=== PATIENT | female | born 2000 | race Caucasian/White ===

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

== ENCOUNTER 2022-02-15 17:51 | Emergency (ER) | payer OTHER ==
--- NOTE | 2022-02-15 17:56 | ERPHSYRPT ---
- History of Present Illness Time Seen by Provider: 02/15/22 17:55 Source: patient Exam Limitations: no limitations Physician History: This is an 21-year-old white female who presents to the emergency department because of suicidal ideation. She states that she does not have homicidal ideation. She has no hallucinations. She has no specific plan but she stated that she wanted to do something quick. She has a history of cutting in the past. She is never been to the emergency department because of her suicidal ideation. She states that she is depressed and the underlying cause of her suicidal ideation is multifactorial including her gender identity, financial issues, depression and others. She does not have a headache. She has no shortness of breath. She does not have chest pain. Timing/Duration: other (Present for several months) Severity of Symptoms-Max: moderate Severity of Symptoms-Current: moderate Context related to: work, living circumstances Suicidal thoughts: other (No specific plan) Associated Symptoms: confused, depressed, frustrated, suicidal ideation, No hostile, No hallucinating, No impaired concentration, No paranoid Previous symptoms: same symptoms as today, no recent treatment Allergies/Adverse Reactions: No Known Drug Allergies Allergy (Verified 02/15/22 18:16) Home Medications: Sertraline HCl 50 mg [Zoloft 50 mg Tablet] 100 mg PO DAILY 12/01/21 [History] Hx Tetanus, Diphtheria Vaccination/Date Given: Yes Hx Influenza Vaccination/Date Given: No Hx Pneumococcal Vaccination/Date Given: No Travel Risk - International Travel Have you traveled outside of the country in past 3 weeks: No - Coronavirus Screening Are you exhibiting any of the following symptoms?: No Close contact with a COVID-19 positive Pt in past 14-21 Days: No - Vaccine Status Have you recieved a Covid-19 vaccination: No 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: [employer] - Vaccination Dates Date of 2cond Vaccination (if applicable): 2020 - Past Medical History Pertinent Past Medical History: No - Past Surgical History Past Surgical History: No - Social History Smoking Status: Never smoker Exposure to second hand smoke: Yes Drug Use: none Patient Lives Alone: No - Review of Systems Constitutional: No Symptoms Eyes: No Symptoms Ears, Nose, & Throat: No Symptoms Respiratory: No Symptoms Cardiac: No Symptoms Abdominal/Gastrointestinal: No Symptoms Genitourinary Symptoms: No Symptoms Musculoskeletal: No Symptoms Skin: No Symptoms Neurological: No Symptoms Psychological: Depression, Suicidal Ideations, No Homicidal Ideations, No Hallucinations Endocrine: No Symptoms Hematologic/Lymphatic: No Symptoms Immunological/Allergic: No Symptoms All Other Systems: Reviewed and Negative - Nursing Vital Signs Nursing Vital Signs: Initial Vital Signs Temperature 97.7 F 02/15/22 18:19 Pain Scale Pain Intensity 0 - Physical Exam General Appearance: no apparent distress, alert, anxiety Eyes, Ears, Nose, Throat Exam: normal ENT inspection, moist mucous membranes Neck Exam: normal inspection, non-tender, supple, full range of motion Respiratory Exam: normal breath sounds, lungs clear, airway intact, No chest tenderness, No respiratory distress Cardiovascular Exam: regular rate/rhythm, normal heart sounds, normal peripheral pulses Gastrointestinal/Abdominal Exam: soft, normal bowel sounds, No tenderness Extremities Exam: normal inspection, normal range of motion, No evidence of injury Current Suicidality: denies suicide plan Neurological Exam: alert, normal mood/affect, calm, 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, oriented x 3, anxious, depressed affect Appearance: appropriate appearance, appropriate insight Behavior/Eye Contact/Speech: alert & cooperative, good eye contact, normal speech Thoughts/Hallucinations: normal thought pattern, no apparent hallucination Skin Exam: normal color, warm, dry SpO2 Interpretation: normal O2 Delivery: Room Air - Course Nursing assessment & vital signs reviewed: Yes Ordered Tests: Active Orders 24 hr Category Date Time Status EKG-ER Only STAT Care 02/15/22 18:01 Active ACETAMINOPHEN Stat Lab 02/15/22 18:54 Completed CBC W DIFF Stat Lab 02/15/22 18:54 Completed CMP Stat Lab 02/15/22 18:54 Completed HCG,QUALITATIVE URINE Stat Lab 02/15/22 19:22 Completed SALICYLATE Stat Lab 02/15/22 18:54 Completed UA W/RFX CULTURE Stat Lab 02/15/22 18:19 Completed Urine Triage Profile Stat Lab 02/15/22 18:19 Completed Lab/Rad Data: Laboratory Result Diagrams 02/15/22 18:54 02/15/22 18:54 Laboratory Results 02/15/22 02/15/22 02/15/22 Range/Units 19:46 19:22 18:54 WBC (4.0-10.5) K/mm3 RBC (4.1-5.4) M/mm3 Hgb (12.0-16.0) gm/dl Hct (35-47) % MCV (78-100) fl MCH (26-32) pg MCHC (32-36) g/dl RDW (11.5-14.0) % Plt Count (150-450) K/mm3 MPV (7.5-11.0) fl Gran % (36.0-66.0) % Eos # (Auto) (0-0.5) Absolute Lymphs (auto) (1.0-4.6) Absolute Monos (auto) (0.0-1.3) Lymphocytes % (24.0-44.0) % Monocytes % (0.0-12.0) % Eosinophils % (0.00-5.0) % Basophils % (0.0-0.4) % Absolute Granulocytes (1.4-6.9) Basophils # (0-0.4) Sodium 139 (137-145) mmol/L Potassium 3.9 (3.5-5.1) mmol/L Chloride 104 (98-107) mmol/L Carbon Dioxide 22 (22-30) mmol/L Anion Gap 17.1 H (5-15) MEQ/L BUN 16 (7-17) mg/dL Creatinine 0.81 (0.52-1.04) mg/dL Estimated GFR > 60.0 ML/MIN Glucose 95 (74-106) mg/dL Calcium 9.7 (8.4-10.2) mg/dL Total Bilirubin 0.30 (0.2-1.3) mg/dL AST 22 (14-36) U/L ALT 20 (0-35) U/L Alkaline Phosphatase 70 (38-126) U/L Serum Total Protein 7.6 (6.3-8.2) g/dL Albumin 4.6 (3.5-5.0) g/dL Urinalys Dipstick Clnc Urine Color (YELLOW) Urine Appearance (CLEAR) Urine pH (5-6) Ur Specific [place] (1.005-1.025) POC Urine Protein Conf (Negative) Urine Ketones (NEGATIVE) Urine Nitrite (NEGATIVE) Urine Bilirubin (NEGATIVE) Urine Urobilinogen (0-1) mg/dL Urine Leukocytes (NEGATIVE) Urine WBC (Auto) (0-5) /HPF Urine RBC (Auto) (0-2) /HPF U Epithel Cells (Auto) (FEW) /HPF Urine Bacteria (Auto) (NEGATIVE) /HPF Urine RBC (0-5) Master/ul Ur Culture Indicated? Urine Glucose (NEGATIVE) mg/dL Urine HCG, Qual NEGATIVE (Negative) Salicylates < 1.0 L (2-20) mg/dL Urine Opiates Level (NEGATIVE) Ur Methadone (NEGATIVE) Acetaminophen < 10 L (10-30) ug/ml Urine Barbiturates (NEGATIVE) Ur Phencyclidine (PCP) (NEGATIVE) Urine Amphetamine (NEGATIVE) U Benzodiazepine Level (NEGATIVE) Urine Cocaine (NEGATIVE) Urine Marijuana (THC) (NEGATIVE) Influenza Type A Ag NEGATIVE (NEGATIVE) Influenza Type B Ag NEGATIVE (NEGATIVE) RSV (PCR) NEGATIVE (Negative) SARS-CoV-2 (PCR) NEGATIVE (NEGATIVE) Slides for Path Review 02/15/22 02/15/22 02/15/22 Range/Units 18:54 18:19 18:19 WBC 9.0 (4.0-10.5) K/mm3 RBC 5.42 H (4.1-5.4) M/mm3 Hgb 11.9 L (12.0-16.0) gm/dl Hct 39.1 (35-47) % MCV 72.1 L (78-100) fl MCH 22.0 L (26-32) pg MCHC 30.4 L (32-36) g/dl RDW 16.1 H (11.5-14.0) % Plt Count 413 (150-450) K/mm3 MPV 9.4 (7.5-11.0) fl Gran % 66.5 H (36.0-66.0) % Eos # (Auto) 0.16 (0-0.5) Absolute Lymphs (auto) 2.31 (1.0-4.6) Absolute Monos (auto) 0.51 (0.0-1.3) Lymphocytes % 25.6 (24.0-44.0) % Monocytes % 5.7 (0.0-12.0) % Eosinophils % 1.8 (0.00-5.0) % Basophils % 0.4 (0.0-0.4) % Absolute Granulocytes 6.00 (1.4-6.9) Basophils # 0.04 (0-0.4) Sodium (137-145) mmol/L Potassium (3.5-5.1) mmol/L Chloride (98-107) mmol/L Carbon Dioxide (22-30) mmol/L Anion Gap (5-15) MEQ/L BUN (7-17) mg/dL Creatinine (0.52-1.04) mg/dL Estimated GFR ML/MIN Glucose (74-106) mg/dL Calcium (8.4-10.2) mg/dL Total Bilirubin (0.2-1.3) mg/dL AST (14-36) U/L ALT (0-35) U/L Alkaline Phosphatase (38-126) U/L Serum Total Protein (6.3-8.2) g/dL Albumin (3.5-5.0) g/dL Urinalys Dipstick Clnc MAIN LAB Urine Color YELLOW (YELLOW) Urine Appearance CLEAR (CLEAR) Urine pH 7.0 (5-6) Ur Specific [place] 1.020 (1.005-1.025) POC Urine Protein Conf NEGATIVE (Negative) Urine Ketones NEGATIVE (NEGATIVE) Urine Nitrite NEGATIVE (NEGATIVE) Urine Bilirubin NEGATIVE (NEGATIVE) Urine Urobilinogen 0.2 (0-1) mg/dL Urine Leukocytes NEGATIVE (NEGATIVE) Urine WBC (Auto) NONE (0-5) /HPF Urine RBC (Auto) NONE (0-2) /HPF U Epithel Cells (Auto) RARE (FEW) /HPF Urine Bacteria (Auto) RARE (NEGATIVE) /HPF Urine RBC NEGATIVE (0-5) Master/ul Ur Culture Indicated? NO Urine Glucose NEGATIVE (NEGATIVE) mg/dL Urine HCG, Qual (Negative) Salicylates (2-20) mg/dL Urine Opiates Level NEGATIVE (NEGATIVE) Ur Methadone NEGATIVE (NEGATIVE) Acetaminophen (10-30) ug/ml Urine Barbiturates NEGATIVE (NEGATIVE) Ur Phencyclidine (PCP) NEGATIVE (NEGATIVE) Urine Amphetamine NEGATIVE (NEGATIVE) U Benzodiazepine Level NEGATIVE (NEGATIVE) Urine Cocaine NEGATIVE (NEGATIVE) Urine Marijuana (THC) NEGATIVE (NEGATIVE) Influenza Type A Ag (NEGATIVE) Influenza Type B Ag (NEGATIVE) RSV (PCR) (Negative) SARS-CoV-2 (PCR) (NEGATIVE) Slides for Path Review YES - Progress Progress: unchanged Progress Note: 02/15/22 21:37 Medical decision making: This patient has been accepted at [facility]. It is a mental health inpatient facility. The patient/case was staffed with their on-call physician today. Counseled pt/family regarding: lab results, diagnosis, need for follow-up - Departure Departure Disposition: Transfer Clinical Impression: Suicidal ideation Condition: Stable Critical Care Time: No Referrals: NATHALIA BLACK [Primary Care Provider] - Follow up/PCP as directed
[2022-02-15 18:58] LABS: Basophil (Absolute #) 0.04 (0-0.4); Eosinophil % 1.8 % (0.00-5.0); Eosinophil (Absolute #) 0.16 (0-0.5); Hematocrit 39.1 % (35-47); Hemoglobin 11.9 gm/dl (12.0-16.0); Lymphocyte (Absolute #) 2.31 (1.0-4.6); Lymphocytes % 25.6 % (24.0-44.0); Mean Cell Volume 72.1 fl (78-100); Mean Corpuscular Hgb Concent. 30.4 g/dl (32-36); Mean Platelet Volume 9.4 fl (7.5-11.0); Monocyte (Absolute #) 0.51 (0.0-1.3); Monocytes % 5.7 % (0.0-12.0); Neutrophil % 66.5 % (36.0-66.0); Platelet Count 413 K/mm3 (150-450); Red Blood Count 5.42 M/mm3 (4.1-5.4); Red Cell Distribution Width 16.1 % (11.5-14.0)
[2022-02-15 19:22] LABS: ACETAMINOPHEN < 10 ug/ml (10-30); ALBUMIN 4.6 g/dL (3.5-5.0); ALKALINE PHOSPHATASE 70 U/L (38-126); ANION GAP 17.1 MEQ/L (5-15); BLOOD UREA NITROGEN 16 mg/dL (7-17); CHLORIDE 104 mmol/L (98-107); Calcium 9.7 mg/dL (8.4-10.2); Carbon Dioxide 22 mmol/L (22-30); Creatinine 1 0.81 mg/dL (0.52-1.04); EST GLOMERULAR FILTRATION RATE > 60.0 ML/MIN; Glucose 95 mg/dL (74-106); Potassium 3.9 mmol/L (3.5-5.1); SALICYLATE < 1.0 mg/dL (2-20); SGOT/AST 22 U/L (14-36); SGPT/ALT 20 U/L (0-35); SODIUM 139 mmol/L (137-145); Total Protein 7.6 g/dL (6.3-8.2)
[2022-02-15 19:24] LABS: Appearance CLEAR (CLEAR); Bacteria RARE /HPF (NEGATIVE); Epithelial Cells RARE /HPF (FEW)
[2022-02-15 19:25] LABS: Bilirubin NEGATIVE (NEGATIVE); Dipstick done @ ? MAIN LAB; Glucose NEGATIVE (NEGATIVE); Ketones NEGATIVE (NEGATIVE); Nitrite NEGATIVE (NEGATIVE); Protein,Urine Dip NEGATIVE (Negative); RBC NEGATIVE Ery/ul (0-5); Urine Cultured Indicated? NO; Urobilinogen 0.2 mg/dL (0-1)
[2022-02-15 19:34] LABS: Amphetamine,Urine NEGATIVE (NEGATIVE); Barbiturate,Urine NEGATIVE (NEGATIVE); Benzodiazepine,Urine NEGATIVE (NEGATIVE); Cocaine,Urine NEGATIVE (NEGATIVE); Methadone,Urine NEGATIVE (NEGATIVE); Opiate,Urine NEGATIVE (NEGATIVE); PCP,Urine NEGATIVE (NEGATIVE); THC,Urine NEGATIVE (NEGATIVE)
[2022-02-15 20:13] LABS: Slide Review 1 YES
[2022-02-15 20:31] LABS: INFLUENZA A NEGATIVE (NEGATIVE); INFLUENZA B NEGATIVE (NEGATIVE); RESPIRATORY SYNCTIAL VIRUS NEGATIVE (Negative); SARS-CoV-2 Xpert Express NEGATIVE (NEGATIVE)
[2022-02-15 20:36] VITALS: O2SAT 98
[2022-02-15 22:03] VITALS: BP 125/77; PULSE 74
== END 2022-02-15 22:15 ==
LOC: ED 17:51
DX: R45.851 Suicidal ideations (principal); Z56.9 Unspecified problems related to employment; Z59.9 Problem related to housing and economic circumstances, unspecified; Z91.52 Personal history of nonsuicidal self-harm
CPT/HCPCS: 0241U; 36415; 80053; 80307; 81015; 84703; 85025; 93005; 99285

== ENCOUNTER 2023-08-24 04:34 | Emergency (ER) | payer SELFPAY ==
[2023-08-24 04:56] VITALS: TEMP 98.1
[2023-08-24 05:12] LABS: Absolute Neutrophil Ct (ANC) 10.62 x10^3/uL (1.4-6.9); BASOPHIL % 0.4 % (0.0-0.4); Basophil (Absolute #) 0.05 x10^3/uL (0-0.4); Eosinophil % 1.9 % (0.00-5.0); Eosinophil (Absolute #) 0.27 x10^3/uL (0-0.5); Hematocrit 40.2 % (35-47); Hemoglobin 12.7 g/dL (12.0-16.0); IMMATURE GRAN # 0.07 x10^3u/L (0.00-0.03); IMMATURE GRAN % 0.5 % (0.00-0.4); Lymphocyte (Absolute #) 2.33 x10^3/uL (1.0-4.6); Lymphocytes % 16.6 % (24.0-44.0); Mean Cell Volume 78.2 fL (78-100); Mean Corpuscular Hemoglobin 24.7 pg (26-32); Mean Corpuscular Hgb Concent. 31.6 g/dL (32-36); Mean Platelet Volume 9.5 fL (7.5-11.0); Neutrophil % 75.6 % (36.0-66.0); Platelet Count 379 x10^3/uL (150-450); Red Blood Count 5.14 x10^6/uL (4.1-5.4)
[2023-08-24] MEDS ORDERED: Sodium Chloride 0.9% 1000 ML 1,000 ML ONE (05:18)
[2023-08-24] MEDS ORDERED: Hydromorphone 1 mg/ml Injection ONE (05:18)
[2023-08-24] MEDS ORDERED: Zofran 4 MG/2 ML VIAL ONE (05:18)
[2023-08-24] MEDS: Hydromorphone 1 mg/ml Injection IV ONE (05:21)
[2023-08-24] MEDS: Zofran 4 MG/2 ML VIAL IV ONE (05:22)
[2023-08-24] MEDS: Sodium Chloride 0.9% 1000 ML 1,000 ML IV STA (05:22)
[2023-08-24 05:24] LABS: ALBUMIN 4.3 g/dL (3.5-5.0); ANION GAP 14.4 MEQ/L (5-15); BILIRUBIN,TOTAL 0.3 mg/dL (0.2-1.3); Calcium 9.1 mg/dL (8.4-10.2); Creatinine 1 0.69 mg/dL (0.52-1.04); EST GLOMERULAR FILTRATION RATE 126.6 ML/MIN; Potassium 3.3 mmol/L (3.5-5.1); Total Protein 7.6 g/dL (6.3-8.2)
[2023-08-24 05:29] LABS: HCG SERUM TEST NEGATIVE (NEGATIVE)
[2023-08-24 06:02] VITALS: O2SAT 97
--- NOTE | 2023-08-24 06:24 | XRAY ---
CLINICAL HISTORY:Lower ABD pain COMPARISON:None. TECHNIQUE:CT scan of the abdomen and pelvis was performed without IV contrast. Coronal and sagittal reconstructive images were also obtained. FINDINGS: Abdomen: The liver is of normal size. No focal or diffuse parenchymal abnormality. The intrahepatic biliary radicals and the bile ducts are normal. The spleen, pancreas, and adrenal glands are unremarkable. The kidneys are unremarkable. They are normal in size and shape. No calculi or hydronephrosis. The gallbladder is normal. No pericholecystic collection or radio-dense calculi in the gall bladder. The ascending colon, the transverse colon, the descending colon, visualized small bowel loops are unremarkable. No definite evidence of acute appendicitis. There is no evidence of significant enlargement of the mesenteric or retroperitoneal lymph nodes. Pelvis: The urinary bladder is unremarkable. The rectosigmoid colon is unremarkable. IUD is noticed. No adnexal masses were seen. No evidence of pelvic lymphadenopathy. Thoracic spine degenerative changes. No lytic or sclerotic bone lesions. IMPRESSION: 1. No acute abnormality was seen. 2. Unremarkable study. Electronically Signed by: Emma Hoyos MD. (08/24/2023 05:23:56 FUND DEVELOPMENT MANAGER)
--- NOTE | 2023-08-24 06:45 | ERPHSYRPT ---
- History of Present Illness Time Seen by Provider: 08/24/23 04:50 Historian: patient Exam Limitations: no limitations Patient Subjective Stated Complaint: pt states she woke up with lower abd pain 8/10. describes as cramping and shooting pains Triage Nursing Assessment: pt alert and oriented, answers questions approp. pt ambulates into room with steady gait noted. respirations nonlabored. skin warm and dry. abd soft, pt reports mild tenderness in lower abd. bowel sounds present x4 quads. Physician History: This is a 23-year-old white female patient who ate a meal approximately 1230 to 1:00 in the morning this morning and then went to sleep. She woke up with pain in the periumbilical region that was significant enough to have nausea but no vomiting. She denies diarrhea. She has had no history of abdominal surgeries in the past. Patient has an IUD in place and so it is unclear to her what her last menstrual period date was. Patient has no vaginal bleeding no vaginal discharge. Timing/Duration: today Activities at Onset: none Quality: sharpness, stabbing Abdominal Pain Onset Location: periumbilical Pain Radiation: no radiation Severity of Pain-Max: moderate Severity of Pain-Current: moderate Modifying Factors: Improves With: nothing Associated Symptoms: nausea, No chest pain, No diarrhea, No headache, No vomiting Previous symptoms: no prior history Allergies/Adverse Reactions: No Known Drug Allergies Allergy (Verified 08/24/23 04:55) Hx Tetanus, Diphtheria Vaccination/Date Given: Yes Hx Influenza Vaccination/Date Given: No Hx Pneumococcal Vaccination/Date Given: No Travel Risk - International Travel Have you traveled outside of the country in past 3 weeks: No - Coronavirus Screening Are you exhibiting any of the following symptoms?: No Close contact with a COVID-19 positive Pt in past 14-21 Days: No - Vaccine Status Have you recieved a Covid-19 vaccination: Yes 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: [employer] - Vaccination Dates Date of 2cond Vaccination (if applicable): 2020 - Review of Systems Constitutional: No Symptoms Eyes: No Symptoms Ears, Nose, & Throat: No Symptoms Respiratory: No Symptoms Cardiac: No Symptoms Abdominal/Gastrointestinal: Abdominal Pain (Periumbilical and just to the right), Nausea, No Vomiting, No Diarrhea, No Constipation, No Appetite Changes Genitourinary Symptoms: No Symptoms Musculoskeletal: No Symptoms Skin: No Symptoms Neurological: No Symptoms Psychological: No Symptoms Endocrine: No Symptoms Hematologic/Lymphatic: No Symptoms Immunological/Allergic: No Symptoms All Other Systems: Reviewed and Negative - Past Medical History Pertinent Past Medical History: No - Past Surgical History Past Surgical History: No - Social History Smoking Status: Never smoker Exposure to second hand smoke: Yes Drug Use: none Patient Lives Alone: No - Female History Hx Last Menstrual Period: irreg- iud Hx Now: No - Nursing Vital Signs Nursing Vital Signs: Initial Vital Signs Temperature 98.1 F 08/24/23 04:39 Pulse Rate 105 H 08/24/23 04:39 Respiratory Rate 18 08/24/23 04:39 Blood Pressure 122/79 08/24/23 04:39 O2 Sat by Pulse Oximetry 99 08/24/23 04:39 Pain Scale Pain Intensity 2 - Physical Exam General Appearance: no apparent distress, alert, anxiety Eye Exam: PERRL/EOMI, eyes nml inspection Ears, Nose, Throat Exam: normal ENT inspection, moist mucous membranes Neck Exam: normal inspection, non-tender, supple, full range of motion Respiratory Exam: normal breath sounds, lungs clear, airway intact, No chest tenderness, No respiratory distress Cardiovascular Exam: regular rate/rhythm, normal heart sounds, normal peripheral pulses Gastrointestinal/Abdomen Exam: soft, normal bowel sounds, tenderness (Pe riumbilical region), guarding (Periumbilical region to palpation), rebound (+/-) Pelvic Exam: not done Rectal Exam: not done Back Exam: normal inspection, normal range of motion, No CVA tenderness Extremity Exam: normal inspection, normal range of motion, pelvis stable Neurologic Exam: alert, oriented x 3, 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, 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, normal mood/affect, nml cerebellar function, nml station & gait, sensation nml Skin Exam: normal color, warm, dry Lymphatic Exam: No adenopathy SpO2 Interpretation: normal SpO2: 97 O2 Delivery: Room Air - Course Nursing assessment & vital signs reviewed: Yes Ordered Tests: Active Orders 24 hr Category Date Time Status IV Insertion STAT Care 08/24/23 05:01 Active ABDOMEN AND PELVIS W/0 CONTRAS [CT] Stat Exams 08/24/23 05:01 Completed AMYLASE Stat Lab 08/24/23 04:45 Completed CBC W DIFF Stat Lab 08/24/23 04:45 Completed CMP Stat Lab 08/24/23 04:45 Completed HCG QUALITATIVE, SERUM Stat Lab 08/24/23 04:45 Completed LIPASE Stat Lab 08/24/23 04:45 Completed UA W/RFX UR CULTURE Stat Lab 08/24/23 06:34 Completed Medication Summary Discontinued Medications Generic Name Dose Route Start Last Admin Trade Name Freq PRN Reason Stop Dose Admin Hydromorphone HCl 0.5 mg 08/24/23 05:01 08/24/23 05:21 Hydromorphone 1 Mg/1ml Inj IV 08/24/23 05:02 0.5 mg STAT ONE Administration Hydromorphone HCl Confirm 08/24/23 05:18 Hydromorphone 1 Mg/1ml Inj Administered 08/24/23 05:19 Dose 1 mg .ROUTE .STK-MED ONE Sodium Chloride 1,000 mls @ 999 mls/hr 08/24/23 05:01 08/24/23 06:35 Sodium Chloride 0.9% 1000 Ml IV 08/24/23 06:01 Infused .Q1H1M STA Infusion Sodium Chloride Confirm 08/24/23 05:18 Sodium Chloride 0.9% 1000 Ml Administered 08/24/23 05:19 Dose 1,000 mls @ ud .ROUTE .STK-MED ONE Ondansetron HCl 4 mg 08/24/23 05:01 08/24/23 05:22 Ondansetron Hcl 4 Mg/2 Ml Vial IV 08/24/23 05:02 4 mg STAT ONE Administration Ondansetron HCl Confirm 08/24/23 05:18 Ondansetron Hcl 4 Mg/2 Ml Vial Administered 08/24/23 05:19 Dose 4 mg .ROUTE .STK-MED ONE Lab/Rad Data: Laboratory Result Diagrams 08/24/23 04:45 08/24/23 04:45 Laboratory Results 08/24/23 08/24/23 08/24/23 Range/Units 06:34 04:45 04:45 WBC (4.0-10.5) x10^3/uL RBC (4.1-5.4) x10^6/uL Hgb (12.0-16.0) g/dL Hct (35-47) % MCV (78-100) fL MCH (26-32) pg MCHC (32-36) g/dL RDW (11.5-14.0) % Plt Count (150-450) x10^3/uL MPV (7.5-11.0) fL Gran % (36.0-66.0) % Immature Gran % (Auto) (0.00-0.4) % Nucleat RBC Rel Count (0.00-0.1) % Eos # (Auto) (0-0.5) x10^3/uL Immature Gran # (Auto) (0.00-0.03) x10^3u/L Absolute Lymphs (auto) (1.0-4.6) x10^3/uL Absolute Monos (auto) (0.0-1.3) x10^3/uL Absolute Nucleated RBC (0.00-0.01) x10^3u/L Lymphocytes % (24.0-44.0) % Monocytes % (0.0-12.0) % Eosinophils % (0.00-5.0) % Basophils % (0.0-0.4) % Absolute Granulocytes (1.4-6.9) x10^3/uL Basophils # (0-0.4) x10^3/uL Sodium 137 (137-145) mmol/L Potassium 3.3 L (3.5-5.1) mmol/L Chloride 102 (98-107) mmol/L Carbon Dioxide 24 (22-30) mmol/L Anion Gap 14.4 (5-15) MEQ/L BUN 10 (7-17) mg/dL Creatinine 0.69 (0.52-1.04) mg/dL Estimated GFR 126.6 ML/MIN Glucose 126 H (74-106) mg/dL Calcium 9.1 (8.4-10.2) mg/dL Total Bilirubin 0.30 (0.2-1.3) mg/dL AST 23 (14-36) U/L ALT 24 (0-35) U/L Alkaline Phosphatase 64 (38-126) U/L Serum Total Protein 7.6 (6.3-8.2) g/dL Albumin 4.3 (3.5-5.0) g/dL Amylase 77 (30-110) U/L Lipase 132 (23-300) U/L Serum HCG, Qual NEGATIVE (NEGATIVE) Urine Color Yellow (Yellow) Urine Appearance Clear (Clear) Urine pH 5.5 (4.6-8.0) Ur Specific [place] 1.020 (1.005-1.030) Urine Protein Negative (Negative) Urine Glucose (UA) Negative (Negative) mg/dL Urine Ketones Negative (Negative) Urine Blood Negative (Negative) Urine Nitrite Negative (Negative) Urine Bilirubin Negative (Negative) Urine Urobilinogen 1.0 A (0.2) mg/dL Ur Leukocyte Esterase Negative (Negative) U Hyaline Cast (Auto) NONE SEEN (0-2) /LPF Urine Microscopic RBC 0-2 (0-5) /HPF Urine Microscopic WBC 0-2 (0-5) /HPF Ur Epithelial Cells Rare (None Seen) /HPF Urine Bacteria None Seen (None Seen) /HPF Urine Culture Reflexed NO (NO) 08/24/23 Range/Units 04:45 WBC 14.0 H (4.0-10.5) x10^3/uL RBC 5.14 (4.1-5.4) x10^6/uL Hgb 12.7 (12.0-16.0) g/dL Hct 40.2 (35-47) % MCV 78.2 (78-100) fL MCH 24.7 L (26-32) pg MCHC 31.6 L (32-36) g/dL RDW 14.0 (11.5-14.0) % Plt Count 379 (150-450) x10^3/uL MPV 9.5 (7.5-11.0) fL Gran % 75.6 H (36.0-66.0) % Immature Gran % (Auto) 0.5 H (0.00-0.4) % Nucleat RBC Rel Count 0.0 (0.00-0.1) % Eos # (Auto) 0.27 (0-0.5) x10^3/uL Immature Gran # (Auto) 0.07 H (0.00-0.03) x10^3u/L Absolute Lymphs (auto) 2.33 (1.0-4.6) x10^3/uL Absolute Monos (auto) 0.70 (0.0-1.3) x10^3/uL Absolute Nucleated RBC 0.00 (0.00-0.01) x10^3u/L Lymphocytes % 16.6 L (24.0-44.0) % Monocytes % 5.0 (0.0-12.0) % Eosinophils % 1.9 (0.00-5.0) % Basophils % 0.4 (0.0-0.4) % Absolute Granulocytes 10.62 H (1.4-6.9) x10^3/uL Basophils # 0.05 (0-0.4) x10^3/uL Sodium (137-145) mmol/L Potassium (3.5-5.1) mmol/L Chloride (98-107) mmol/L Carbon Dioxide (22-30) mmol/L Anion Gap (5-15) MEQ/L BUN (7-17) mg/dL Creatinine (0.52-1.04) mg/dL Estimated GFR ML/MIN Glucose (74-106) mg/dL Calcium (8.4-10.2) mg/dL Total Bilirubin (0.2-1.3) mg/dL AST (14-36) U/L ALT (0-35) U/L Alkaline Phosphatase (38-126) U/L Serum Total Protein (6.3-8.2) g/dL Albumin (3.5-5.0) g/dL Amylase (30-110) U/L Lipase (23-300) U/L Serum HCG, Qual (NEGATIVE) Urine Color (Yellow) Urine Appearance (Clear) Urine pH (4.6-8.0) Ur Specific [place] (1.005-1.030) Urine Protein (Negative) Urine Glucose (UA) (Negative) mg/dL Urine Ketones (Negative) Urine Blood (Negative) Urine Nitrite (Negative) Urine Bilirubin (Negative) Urine Urobilinogen (0.2) mg/dL Ur Leukocyte Esterase (Negative) U Hyaline Cast (Auto) (0-2) /LPF Urine Microscopic RBC (0-5) /HPF Urine Microscopic WBC (0-5) /HPF Ur Epithelial Cells (None Seen) /HPF Urine Bacteria (None Seen) /HPF Urine Culture Reflexed (NO) - Progress Progress: improved, re-examined Progress Note: 08/24/23 06:35 This patient's medical issue is 1 of moderate complexity. The level complex in the workup performed based on review of the patient's past medical history, review of the patient's medication list, review the patient's drug allergy list, history of present illness and physical exam findings. Workup in this patient includes placement of intravenous line, infusion normal saline solution, infusion of Dilaudid and Zofran intravenously, CBC, CMP, amylase, lipase, urinalysis, and CT scan of the abdomen and pelvis without contrast. CT scan of the abdomen pelvis without contrast was interpreted by the radiologist and I reviewed the impression. The impression states no acute abnormality present. No definite evidence of acute appendicitis. 08/24/23 06:44 I reviewed and interpreted the patient's laboratory data results. The patient has a leukocytosis. Counseled pt/family regarding: lab results, diagnosis, need for follow-up, rad results Medical Desision Making - Independent Historian Additional History obtained from: Relative/friend - Diagnostic Testing Diagnostic test were ordered, analyzed, and reviewed by me: Yes Radiological Interpretation: Reviewed by me, Teleradiologist Report - Departure Departure Disposition: Home Clinical Impression: Leukocytosis, Abdominal pain Condition: Stable Critical Care Time: No Referrals: SALBADOR OSORIO MD [Primary Care Provider] - Follow up/PCP as directed Additional Instructions: Drink plenty of clear liquids before advancing diet. Use Tylenol and ibuprofen for pain control. Return to the emergency department if your symptoms recur. Follow-up with your primary care provider by phone, 08/24/2023, to make arranges for follow-up appointment for further evaluation management. Prescriptions: Ondansetron ODT 4 MG [Zofran Odt 4 mg] 4 mg PO Q6H PRN PRN #10 tablet PRN Reason: Vomiting
[2023-08-24 06:46] LABS: Appearance Clear (Clear); Bacteria None Seen /HPF (None Seen); Bilirubin Negative (Negative); Blood Negative (Negative); Epithelial Cells Rare /HPF (None Seen); Glucose, Urine Negative (Negative); Hyaline Casts NONE SEEN /LPF (0-2); Ketones Negative (Negative); Leukocyte Esterase Negative (Negative); Nitrite Negative (Negative); Ph 5.5 (4.6-8.0); Protein,Urine Dip Negative (Negative); RBC 0-2 /HPF (0-5); WBC 0-2 /HPF (0-5)
[2023-08-24 06:57] LABS: ADD URINE CULTURE? NO (NO)
[2023-08-24 07:13] VITALS: BP 115/72; PULSE 90; RESP 18
== END 2023-08-24 07:26 | disposition home or self-care (01) ==
LOC: ED 04:34
DX: D72.829 Elevated white blood cell count, unspecified (principal); R10.33 Periumbilical pain; R11.0 Nausea
CPT/HCPCS: 36000; 36415; 74176; 80053; 81001; 82150; 83690; 84703; 85025; 96374; 96375; 99284; J1170; J2405